=== PATIENT | male | born 1990 | race Caucasian/White ===

== ENCOUNTER 2021-10-21 09:20 | Outpatient (CLI) | payer OTHER | END 2021-10-21 09:21 | disposition critical access hospital (66) | LOC: EMS 09:20 | DX: S61.412A Laceration without foreign body of left hand, initial encounter (principal); W31.2XXA Contact with powered woodworking and forming machines, initial encounter; Y93.H3 Activity, building and construction; Y92.008 Other place in unspecified non-institutional (private) residence as the place of occurrence of the external cause; Y99.0 Civilian activity done for income or pay | CPT/HCPCS: A0425; A0427 ==

== ENCOUNTER 2021-10-21 09:40 | Emergency (ER) | payer OTHER ==
--- NOTE | 2021-10-21 09:45 | ED Physician Documentation ---
PD HPI UPPER EXT INJURY - Stated complaint Stated Complaint: HAND INJURY - History obtained from History obtained from: Patient, EMS - History of Present Illness Location: Left, Hand (palm and thenar area to base of thumb.) Type of injury: Laceration (He states he was using a circular power saw that kicked on the wood he was cutting and deviated into his left palm. Significant laceration in the palm to the base of the thumb with obvious open fracture and some bleeding.) Where injury occurred: Work Timing - onset: How many minutes ago (30), Today Timing - details: Abrupt onset, Still present Worsened by: Moving, Palpating Associated symptoms: Weakness (for thumb and index finger movement.), Numbness (for thumb and index/middle fingers. Has sensation normal just in little finger and side of ring.) Contributing factors: No: Prior ortho surgery Similar symptoms before: Has not had sx before Recently seen: Not recently seen Review of Systems Constitutional: denies: Fever Nose: denies: Rhinorrhea / runny nose, Congestion Throat: denies: Sore throat Respiratory: denies: Cough GI: denies: Nausea, Vomiting Skin: reports: Laceration (s) Neurologic: reports: Focal weakness, Numbness. denies: Altered mental status, LOC PD PAST MEDICAL HISTORY - Past Medical History Cardiovascular: None Respiratory: Asthma Neuro: None Endocrine/Autoimmune: None - Past Surgical History Past Surgical History: No - Present Medications Home Medications: Ambulatory Orders Medication Instructions Recorded Confirmed Ibuprofen 1 tab PO TID PRN 10/25/15 10/21/21 - Allergies Allergies/Adverse Reactions: Allergies Allergy/AdvReac Type Severity Reaction Status Date / Time No Known Drug Allergies Allergy Verified 10/21/21 09:57 - Social History Does the pt smoke?: Yes Smoking Status: Current every day smoker Does the pt drink ETOH?: Yes Does the pt have substance abuse?: Yes - Immunizations Immunizations are current?: Yes - POLST Patient has POLST: No PD ED PE NORMAL - Vitals Vital signs reviewed: Yes - General General: Alert and oriented X 3, Well developed/nourished, Other (left hand bandaged. He appears in pain from hand injury. ) - HEENT HEENT: Atraumatic - Cardiac Cardiac: RRR, Other (good cap refill in all finger tips. ) - Respiratory Respiratory: No respiratory distress, Clear bilaterally - Derm Derm: Normal color, Warm and dry - Extremities Extremities: Other (The left hand shows a large laceration starting near the hypothenar area partial-thickness and extending deeper in a horizontal direction to the base of the thumb. Obvious disruption of the thenar muscles and the base of the thumb at the distal first metacarpal. No obvious FB. mild bleeding.) - Neuro Neuro: Alert and oriented X 3, Normal speech, Other (Diminished sensation in the middle and ring finger in the side of the index finger with poor discrimination of sharp dull. No sensation in the thumb. Mild flexion movement of the thumb. No abduction or abduction. The other fingers show flexion at the DIPs but poor flexion at the PIPs and MCPs. ) Results - Vitals Vitals: Vital Signs - 24 hr 10/21/21 10/21/21 10/21/21 09:57 11:03 11:57 Temperature 37 C Heart Rate 51 L 68 55 L Respiratory 12 12 20 Rate Blood Pressure 138/100 H 153/110 H 132/94 H O2 Saturation 94 93 93 10/21/21 12:33 Temperature 37.1 C Heart Rate 70 Respiratory 16 Rate Blood Pressure 143/82 H O2 Saturation 93 Oxygen O2 Source Room air - Labs Labs: Laboratory Tests 10/21/21 10/21/21 10/21/21 10:08 10:08 10:20 WBC 7.6 RBC 4.62 L Hgb 14.7 Hct 43.1 MCV 93.3 MCH 31.8 H MCHC 34.1 RDW 11.8 L Plt Count 381 MPV 10.1 Neut # (Auto) 5.3 Lymph # (Auto) 1.5 [place] # (Auto) 0.6 Eos # (Auto) 0.2 Baso # (Auto) 0.1 Absolute Nucleated RBC 0.00 Nucleated RBC % 0.0 Sodium 138 Potassium 4.3 Chloride 102 Carbon Dioxide 26 Anion Gap 10.0 BUN 15 Creatinine 1.0 Estimated GFR (MDRD) 87 L Glucose 119 H Calcium 9.1 Total Bilirubin 0.5 AST 15 ALT 15 Alkaline Phosphatase 49 Total Protein 7.1 Albumin 4.3 Globulin 2.8 Albumin/Globulin Ratio 1.5 Lipase 37 SARS-CoV-2 (PCR) NOT DETECTED - Rads (name of study) left hand Radiology: Prelim report reviewed (fracture and soft tissue injury distal first MC. ), See rad report PD MEDICAL DECISION MAKING - ED course Complexity details: considered differential (Deep laceration with fracture base of the thumb and involving possibly flexor tendons of other fingers. [facility] [place] was contacted and auto accepted to the trauma center.), d/w patient ED course: The patient was given IV fluids as well as pain medication. He was given a gram of Ancef IV. He states his last tetanus was 6 years ago so was up-to-date. It is first bandaging applied in the field was removed and wound examined. Minimal bleeding. No obvious foreign body. There was some gentle cleansing of the area and then rebandaged. Repeat pain medication doses were given at interval as needed. [facility] [place] accepted the patient in transfer to their ER. [facility] declined transfer for not wanting rig that far off the [place] [facility] was called and arrived about an hour. The patient will be transferred by ground ambulance for more definitive care. His level of injury did not warrant air transport as he did have circulation to the thumb and fingers and these were reassessed at interval. Departure - Departure Disposition: 02 Transfer Acute Care Hosp Clinical Impression: Hand laceration involving tendon, Metacarpal bone fracture Condition: Stable
[2021-10-21] MEDS ORDERED: HYDROmorphone 1 MG/ML CARPUJECT IVP STA ×3 (09:57→12:49)
[2021-10-21] MEDS ORDERED: SODIUM CHLORIDE 0.9% 1,000 ML IV STA ×2 (09:57→11:22)
[2021-10-21] MEDS ORDERED: ceFAZolin 1 GM in SODIUM CHLORIDE 0.9% MINIBAG 100 ML IV STA (09:57)
[2021-10-21] MEDS ORDERED: KETOROLAC 15 MG/ML VIAL IVP STA (09:57)
[2021-10-21 10:12] LABS: BASOPHILS # (AUTO) 0.1 10^3/uL (0.0-0.1); BASOPHILS % (AUTO) 0.9 %; EOSINOPHILS # (AUTO) 0.2 10^3/uL (0.0-0.7); EOSINOPHILS % (AUTO) 2.5 %; HCT - HEMATOCRIT 43.1 % (42.0-52.0); HGB - HEMOGLOBIN 14.7 g/dL (14.0-18.0); LYMPHOCYTES # (AUTO) 1.5 10^3/uL (1.5-3.5); LYMPHOCYTES % (AUTO) 19.4 %; MEAN CORPUSCULAR HEMOGLOBIN 31.8 pg (27.0-31.0); MEAN CORPUSCULAR HGB CONC 34.1 g/dL (32.0-36.0); MEAN CORPUSCULAR VOLUME 93.3 fL (80.0-94.0); MEAN PLATELET VOLUME 10.1 fL (7.4-11.4); MONOCYTES # (AUTO) 0.6 10^3/uL (0.0-1.0); NEUTROPHILS # (AUTO) 5.3 10^3/uL (1.5-6.6); NEUTROPHILS % (AUTO) 68.9 %; PLT - PLATELET COUNT 381 10^3/uL (130-450); RED BLOOD COUNT 4.62 10^6/uL (4.70-6.10); RED CELL DISTRIBUTION WIDTH 11.8 % (12.0-15.0); WHITE BLOOD COUNT 7.6 x10^3/uL (4.8-10.8)
[2021-10-21 10:24] LABS: ALBUMIN 4.3 g/dL (3.2-5.5); ALBUMIN/GLOBULIN RATIO 1.5 (1.0-2.2); BILIRUBIN,TOTAL 0.5 mg/dL (0.2-1.0); CALCIUM 9.1 mg/dL (8.5-10.3); POTASSIUM 4.3 mmol/L (3.5-5.0); TOTAL PROTEIN 7.1 g/dL (6.7-8.2)
--- NOTE | 2021-10-21 11:09 | XRAY Report ---
PROCEDURE: Hand 3 View LT INDICATIONS: hand injury, circular saw TECHNIQUE: 3 views of the hand(s) acquired. COMPARISON: None FINDINGS: Bones: There is an oblique fracture through the distal left first metacarpal shaft with ulnar displac ement and overriding of the distal fracture fragment. There is overlying soft tissue defect. No radio paque soft tissue foreign body seen No suspicious bony lesions. Soft tissues: No suspicious soft tissue calcifications. IMPRESSION: Oblique fracture involving the distal left first metacarpal shaft with overriding and ulnar displacem ent of the distal fracture fragment. Overlying soft tissue defect. No radiopaque soft tissue foreign bodies visualized. Reviewed by: Naman Cat MD on 10/21/2021 11:07 AM PDT Approved by: Naman Cat MD on 10/21/2021 11:07 AM PDT Station ID: [id number]
[2021-10-21 12:37] VITALS: BP 143/82
== END 2021-10-21 13:55 | disposition short-term general hospital (02) ==
LOC: EDUNIT# → ED 09:40
DX: S62.202A Unspecified fracture of first metacarpal bone, left hand, initial encounter for closed fracture (principal); W27.0XXA Contact with workbench tool, initial encounter; F17.200 Nicotine dependence, unspecified, uncomplicated
CPT/HCPCS: 1040M; 36415; 73130; 80053; 83690; 85025; 87635; J1170; 96365; 96375; 96376; 99284

== ENCOUNTER 2023-07-31 16:38 | Observation (INO) | payer MEDICAID, OTHER ==
[2023-07-31 17:08] LABS: BASOPHILS % (AUTO) 1.5 %; EOSINOPHILS % (AUTO) 13.9 %; HCT - HEMATOCRIT 47.6 % (42.0-52.0); HGB - HEMOGLOBIN 16.2 g/dL (14.0-18.0); LYMPHOCYTES % (AUTO) 26.1 %; MEAN CORPUSCULAR HEMOGLOBIN 30.4 pg (27.0-31.0); MEAN CORPUSCULAR VOLUME 89.3 fL (80.0-94.0); MEAN PLATELET VOLUME 10.7 fL (7.4-11.4); MONOCYTES % (AUTO) 7.6 %; NEUTROPHILS % (AUTO) 50.6 %; PLT - PLATELET COUNT 328 10^3/uL (130-450); RED BLOOD COUNT 5.33 10^6/uL (4.70-6.10); RED CELL DISTRIBUTION WIDTH 12.3 % (12.0-15.0); WHITE BLOOD COUNT 10.9 x10^3/uL (4.8-10.8)
--- NOTE | 2023-07-31 17:08 | ED Physician Documentation ---
PD HPI ABD PAIN - Stated complaint Stated Complaint: ABD PX - Chief complaint Chief Complaint: Abd Pain - History obtained from History obtained from: Patient - Additional information Additional information: Otherwise healthy 32-year-old gentleman had some right back pain that he felt was work-related for the last week or so. Starting last night though he developed right lower quadrant pain radiating to the right testicle that is quite severe. He had mild nausea with it. PD PAST MEDICAL HISTORY - Past Medical History Cardiovascular: None Respiratory: Asthma Neuro: None Endocrine/Autoimmune: None GI: Other : Renal insuffiency HEENT: None Psych: None Musculoskeletal: Chronic back pain Derm: None - Past Surgical History Past Surgical History: No Ortho: Other - Present Medications Home Medications: Ambulatory Orders Medication Instructions Recorded Confirmed Gabapentin [Neurontin] 300 mg PO DAILY 07/31/23 07/31/23 Montelukast Sodium 10 mg PO DAILY 07/31/23 07/31/23 - Allergies Allergies/Adverse Reactions: Allergies Allergy/AdvReac Type Severity Reaction Status Date / Time No Known Drug Allergies Allergy Verified 07/31/23 16:53 - Social History Does the pt smoke?: Yes Smoking Status: Current every day smoker Does the pt drink ETOH?: Yes Does the pt have substance abuse?: Yes Substance Use and Type: Marijuana - Immunizations Immunizations are current?: Yes Immunizations: Other immun not current - POLST Patient has POLST: No PD ED PE NORMAL - Vitals Vital signs reviewed: Yes - General General: Alert and oriented X 3, No acute distress - Cardiac Cardiac: RRR, No murmur - Respiratory Respiratory: No respiratory distress, Clear bilaterally - Abdomen Abdomen: Normal bowel sounds, Soft, Other (Significant tenderness in the right lower quadrant without surgical signs. Normal testicular and exam without hernia. No testicular tenderness.) - Neuro Neuro: Alert and oriented X 3 Results - Vitals Vitals: Vital Signs - 24 hr 07/31/23 07/31/23 07/31/23 16:47 16:53 17:56 Temperature 37.2 C 37.0 C 37.0 C Heart Rate 79 86 86 Respiratory 16 16 16 Rate Blood Pressure 137/88 H 136/80 H 136/80 H O2 Saturation 97 98 98 Oxygen O2 Source Room air - Labs Labs: Laboratory Tests 07/31/23 07/31/23 07/31/23 16:57 16:57 17:52 WBC 10.9 H RBC 5.33 Hgb 16.2 Hct 47.6 MCV 89.3 MCH 30.4 MCHC 34.0 RDW 12.3 Plt Count 328 MPV 10.7 Neut # (Auto) Not Reportable Lymph # (Auto) Not Reportable [place] # (Auto) Not Reportable Eos # (Auto) Not Reportable Baso # (Auto) Not Reportable Absolute Nucleated RBC Not Reportable Total Counted 100 Band Neuts % (Manual) 0 Abnorm Lymph % (Manual) 2 Metamyelocytes % 1 H Nucleated RBC % Not Reportable Neutrophils # (Manual) 4.7 Lymphocytes # (Manual) 4.0 H Monocytes # (Manual) 0.7 Eosinophils # (Manual) 1.2 H Basophils # (Manual) 0.2 H Differential Comment MANUAL DIFFERENTIAL Platelet Estimate NORMAL (130-450,000) Platelet Morphology NORMAL APPEARANCE RBC Morph Micro Appear NORMAL APPEARANCE Sodium 137 Potassium 3.8 Chloride 102 Carbon Dioxide 29 Anion Gap 6.0 BUN 12 Creatinine 1.0 Estimated GFR (MDRD) 87 L Glucose 83 Calcium 10.5 H Total Bilirubin 0.6 AST 17 ALT 25 Alkaline Phosphatase 60 Total Protein 7.8 Albumin 4.9 Globulin 2.9 Albumin/Globulin Ratio 1.7 Urine Color YELLOW Urine Clarity CLEAR Urine pH 7.5 Ur Specific [place] 1.010 Urine Protein NEGATIVE Urine Glucose (UA) NEGATIVE Urine Ketones NEGATIVE Urine Occult Blood NEGATIVE Urine Nitrite NEGATIVE Urine Bilirubin NEGATIVE Urine Urobilinogen 0.2 (NORMAL) Ur Leukocyte Esterase NEGATIVE Ur Microscopic Review NOT INDICATED Urine Culture Comments NOT INDICATED PD Medical Decision Making - ED course ED course: 32-year-old gentleman presents with signs and symptoms most consistent with appendicitis. Workup in the emergency department demonstrates a mild leukocytosis and a CT showing a slightly dilated appendix without other inflammatory signs but he also has some mucosal hyperemia of the colon. Case was discussed by phone with our surgeon, Dr. Blanco at approximately 6:25 PM. Given the concern for potential IBD her plan at this point is to start some Zosyn and probably observe him with the decision for surgery in the morning. Departure - Departure Disposition: ED Place in Observation Clinical Impression: Abdominal pain Condition: Stable Forms: PCP List
[2023-07-31 17:15] LABS: BAND NEUTROPHILS % (MANUAL) 0 %
[2023-07-31 17:19] LABS: ALBUMIN 4.9 g/dL (3.2-5.5); ALBUMIN/GLOBULIN RATIO 1.7 (1.0-2.2); BILIRUBIN,TOTAL 0.6 mg/dL (0.2-1.0); CALCIUM 10.5 mg/dL (8.5-10.3); POTASSIUM 3.8 mmol/L (3.5-4.5); TOTAL PROTEIN 7.8 g/dL (6.4-8.9)
[2023-07-31] MEDS ORDERED: iohexoL-300 100 ML VIAL ONE (17:24)
[2023-07-31] MEDS: KETOROLAC 15 MG/ML VIAL IVP STA (17:26)
[2023-07-31 17:34] LABS: ABNORMAL LYMPHS % (MANUAL) 2 %; BASOPHILS # (MANUAL) 0.2 10^3/uL (0-0.1); BASOPHILS % (MANUAL) 2 %; EOSINOPHILS # (MANUAL) 1.2 10^3/uL (0-0.7); LYMPHOCYTES % (MANUAL) 35 %; METAMYELOCYTES % (MANUAL) 1 %; MONOCYTES # (MANUAL) 0.7 10^3/uL (0.0-1.0); NEUTROPHILS # (MANUAL) 4.7 10^3/uL (1.5-6.6)
[2023-07-31 17:40] LABS: PLATELET ESTIMATE, MANUAL NORMAL (130-450,000) (NORMAL); PLATELET MORPHOLOGY NORMAL APPEARANCE (NORMAL); RBC MORPHOLOGY (MULTIPLE) NORMAL APPEARANCE (NORMAL)
[2023-07-31 17:41] LABS: DIFFERENTIAL COMMENT MANUAL DIFFERENTIAL
[2023-07-31 18:09] LABS: BILIRUBIN,URINE NEGATIVE (NEGATIVE); GLUCOSE, URINE (UA) NEGATIVE (NEGATIVE); KETONES,URINE (UA) NEGATIVE (NEGATIVE); LEUKOCYTE ESTERASE, URINE NEGATIVE (NEGATIVE); NITRITE,URINE NEGATIVE (NEGATIVE); OCCULT BLOOD,URINE NEGATIVE (NEGATIVE); PH,URINE 7.5 PH (5.0-7.5); PROTEIN,URINE NEGATIVE (NEGATIVE); UROBILINOGEN,URINE 0.2 (NORMAL) E.U./dL (NORMAL)
[2023-07-31 18:16] LABS: CLARITY,URINE CLEAR (CLEAR)
--- NOTE | 2023-07-31 18:27 | CT Report ---
PROCEDURE: Abdomen/Pelvis W INDICATIONS: RLQ pain, IV only CONTRAST: Omnipaque 300 100ml TECHNIQUE: After the administration of intravenous contrast, a CT scan of the abdomen and pelvis was performed. Images were recorded and evaluated at appropriate window settings. Reformats: coronal and sagittal. F or radiation dose reduction, the following was used: automated exposure control, adjustment of mA and /or kV according to patient size. COMPARISON: None. FINDINGS: Image quality: Diagnostic. Lower chest: Scattered patchy areas of groundglass and calcified airspace opacity. No pleural effusio n. Liver: No solid mass. Gallbladder and biliary tree: Normal gallbladder. Nondilated biliary tree. Spleen: No splenomegaly. Pancreas: No pancreatic ductal dilation. Adrenals: No adrenal nodule. Kidneys and ureters: Symmetric renal enhancement. Mild right renal atrophy. No hydronephrosis or hydr oureter. Stomach, bowel and peritoneum: The appendix is slightly prominent measuring up to 9 mm in diameter an d hyperemic. No definite periappendiceal fat stranding. There is diffuse colon wall fat infiltration and decompression. Mild mucosal hyperemia is seen. Stomach and small bowel loops are unremarkable wit hout obstruction. Rectal mucosa appears mildly hyperemic. Lymph nodes: No central or retroperitoneal adenopathy. Vessels: No infrarenal aortic aneurysm. PELVIS Reproductive organs: Unremarkable. Bladder: No abnormal wall thickening, accounting for underdistention. Pelvic lymph nodes: No pelvic adenopathy by size criteria. Bones: No aggressive osseous abnormality. Other: No significant ventral or inguinal hernia. IMPRESSION: Prominent appendix without discrete periappendiceal inflammation. Findings could be seen in early martine endicitis. Clinical follow-up recommended. Diffuse colonic mucosal hyperemia and fatty infiltration of the colon wall. This can be seen in infla mmatory bowel disease, less likely infectious colitis. Clinical correlation recommended. No evidence of bowel obstruction, abscess formation, or perforation. Reviewed by: Paulina Salazar MD on 07/31/2023 6:25 PM PDT Approved by: Paulina Salazar MD on 07/31/2023 6:25 PM PDT Station ID: [id number]
[2023-07-31] MEDS: PIPERACILLIN/TAZOBACTAM 3.375 GM in SODIUM CHLORIDE 0.9% MINIBAG 100 ML IV STA (18:38)
[2023-07-31] MEDS ORDERED: PIPERACILLIN/TAZOBACTAM 3.375 GM in SODIUM CHLORIDE 0.9% MINIBAG 100 ML IV SCH (19:00)
[2023-07-31] MEDS ORDERED: HYDROmorphone 0.5 MG/0.5 ML SYRINGE IVP PRN (19:26)
[2023-07-31] MEDS ORDERED: ONDANSETRON 4 MG/2 ML VIAL IVP PRN (19:26)
[2023-07-31] MEDS: iohexoL-300 100 ML VIAL IVP ONE (19:32)
[2023-07-31] MEDS ORDERED: KETOROLAC 15 MG/ML VIAL IVP PRN (19:35)
--- NOTE | 2023-07-31 19:41 | SURGERY HX AND PHYSICAL(T) ---
Surgical History & Physical - Chief Complaint/HPI Chief Complaint: abdominal and back pain History of Present Illness: Patient reports chronic back pain which has been worse for the last couple of days and acute onset right lower quadrant pain since last night. His pain is sharp and constant in nature. It is made worse with activity and palpation. He denies f/c, c/d, blood in his stool, recent weight loss, and has had a normal appetite throughout his illness. He had a similar episode of pain about ten years ago and was diagnosed with "colitis" which improved with medication (though he's not sure what he was given) and he did not require any follow up. No family history of colon cancer. +FH of crohn's in his sister. - PMH/PSH/Social Hx Does the pt have a hx of MRSA?: No Neurological History: None Eyes, Ears, Nose, Throat: None Cardiovascular: None Respiratory: Asthma Skin: None Endocrine/Autoimmune: None Gastrointestinal: Other Urinary: Renal insuffiency Musculoskeletal: Chronic back pain Blood Disorders: None Psychiatric: None Orthopedic: Other (multiple left hand surgeries for near amputation about 2 years ago) Smoking Status: Former smoker (quit 2 years ago) Does the pt drink ETOH?: No Number: 4 Does the pt have substance abuse?: Yes Substance Use and Type: Marijuana (daily use) - Family Hx Family Hx: Other (Paternal grandfather had CAD, CVA. Mother has DM. Sister with Crohn's) - Home Meds and Allergies Home Medications: Gabapentin [Neurontin] 300 mg PO DAILY 07/31/23 Montelukast Sodium 10 mg PO DAILY 07/31/23 Allergies/Adverse Reactions: Allergies Allergy/AdvReac Type Severity Reaction Status Date / Time No Known Drug Allergies Allergy Verified 07/31/23 16:53 - Review of Systems Constitutional: Other (A complete 10 point review of symptoms is otherwise negative except for that noted in HPI and PMH.) - Vital Signs Heart Rate: 86 Blood Pressure: 136/80 Temperature: 37.0 C Respiratory Rate: 16 O2 Saturation: 98 Weight (kg): 76.376 kg Height: 1.75 m - Physical Exam Comments/Other: GEN: No acute distress, appears stated age, alert and oriented HEENT: NCAT, MMM, EOMI NEURO: CN II-XII grossly intact, no obvious focal deficits CV: RRR PULM: Nonlabored, on room air ABD: soft, with moderate tenderness to deep palpation in the right lower quadrant, negative Rovsing sign, negative heeltap, no significant rebound or guarding, abdomen otherwise nontender CIRCULATORY: no clubbing, cyanosis, or edema SKIN: no lesions appreciated LYMPH: no obvious lymphadenopathy MSK: 4/4 strength in all extremities except for left upper extremity which shows scarring consistent with previous surgery and demonstrates 3 out of 4 strength PSYCH: Affect is appropriate - Patient Review Patient Review: Problems were reviewed with the patient during this visit. Medications were reviewed with the patient during this visit. Allergies were reviewed this patient during this visit. Pertinent Tests Reviewed: All pertitent test for this patient were reviewed. - Assessment & Plan Assessment and Plan: This is a 32-year-old male with: 1. Acute colitis with appendicitis The patient has pancolitis and mild appendicitis measuring 0.9 cm in greatest diameter. There is no significant fat stranding throughout the abdomen. There is no free air. There is no significant free fluid. I personally reviewed the images and report from the patient's CT scan done today. The patient has been tolerating a regular diet although he has not had much to eat today. He reports a regular bowel movement without any blood in his stool yesterday. He has never noted any blood in his stool previously. He has not had any unexplained weight loss. His CT scan is more concerning for inflammatory bowel disease versus infectious colitis than appendicitis. In the setting of inflammatory bowel disease, appendectomy is contraindicated. I explained these findings with the patient and his mother at bedside. At this time, I will start the patient on a clear liquid diet and IV antibiotics. His if his symptoms do not significantly improve in the next 24 hours, I will start him on steroids as well to empirically treat for inflammatory bowel disease. Once his symptoms have improved, I would recommend colonoscopy to definitively rule in or out inflammatory bowel disease. The patient is and his mother are agreeable to this plan of care. When the patient's symptoms improved, I will transition him to oral medications and a regular diet. 2. Asthma -I will continue the patient's home medications. The patient will be admitted to the floor under observation status.
[2023-07-31 20:06] LABS: BUN - BLOOD UREA NITROGEN 13 mg/dL (6-20); CALCIUM 10.3 mg/dL (8.5-10.3); CARBON DIOXIDE - CO2 26 mmol/L (21-32); CHLORIDE 102 mmol/L (101-111); CRP - C-REACTIVE PROTEIN < 0.5 mg/dL (<0.5); GFR - MDRD 87 (>89); GLUCOSE 89 mg/dL (74-104); SODIUM 136 mmol/L (135-145)
[2023-07-31] MEDS: SODIUM CHLORIDE 0.9% 1,000 ML IV SCH (20:12)
[2023-07-31] MEDS: ACETAMINOPHEN 500 MG TABLET PO PRN (20:18)
[2023-07-31 20:19] LABS: HCT - HEMATOCRIT 46.4 % (42.0-52.0); HGB - HEMOGLOBIN 15.8 g/dL (14.0-18.0); MEAN CORPUSCULAR HEMOGLOBIN 30.4 pg (27.0-31.0); MEAN CORPUSCULAR HGB CONC 34.1 g/dL (32.0-36.0); MEAN CORPUSCULAR VOLUME 89.2 fL (80.0-94.0); RED BLOOD COUNT 5.2 10^6/uL (4.70-6.10); RED CELL DISTRIBUTION WIDTH 12.3 % (12.0-15.0); WHITE BLOOD COUNT 10.3 x10^3/uL (4.8-10.8)
[2023-07-31] MEDS ORDERED: ALBUTEROL NEB 2.5 MG/3 ML INH PRN (20:26)
[2023-07-31] MEDS: PIPERACILLIN/TAZOBACTAM 3.375 GM in SODIUM CHLORIDE 0.9% MINIBAG 100 ML IV SCH (22:10)
[2023-08-01 05:44] LABS: HCT - HEMATOCRIT 47.8 % (42.0-52.0); HGB - HEMOGLOBIN 16.2 g/dL (14.0-18.0); MEAN CORPUSCULAR HEMOGLOBIN 30.5 pg (27.0-31.0); MEAN CORPUSCULAR HGB CONC 33.9 g/dL (32.0-36.0); MEAN PLATELET VOLUME 10.9 fL (7.4-11.4); RED BLOOD COUNT 5.31 10^6/uL (4.70-6.10); RED CELL DISTRIBUTION WIDTH 12.3 % (12.0-15.0); WHITE BLOOD COUNT 9.9 x10^3/uL (4.8-10.8)
[2023-08-01 05:48] LABS: BUN - BLOOD UREA NITROGEN 13 mg/dL (6-20); CALCIUM 9.9 mg/dL (8.5-10.3); CARBON DIOXIDE - CO2 24 mmol/L (21-32); CHLORIDE 104 mmol/L (101-111); CRP - C-REACTIVE PROTEIN < 0.5 mg/dL (<0.5); GFR - MDRD 87 (>89); GLUCOSE 103 mg/dL (74-104); POTASSIUM 3.9 mmol/L (3.5-4.5); SODIUM 137 mmol/L (135-145)
[2023-08-01] MEDS: AMOX/CLAV 875 MG/125 MG TABLET PO SCH (09:27)
[2023-08-01 09:49] VITALS: O2SAT 93
--- NOTE | 2023-08-01 10:18 | PROVIDER PROGRESS NOTE ---
Subjective - General Admit Date: 07/31/23 - Other Other Information/Narrative: Pain markedly improved this morning. No f/c. No n/v. Hungry this morning. Objective - Patient Data Vital Signs: Vital Signs x48h Temp Pulse Resp BP BP Pulse Ox 08/01/23 09:00 36.8 C 67 19 146/95 H 93 08/01/23 04:25 36.8 C 73 16 134/83 H 96 Weight: Weight 07/30/23 07/31/23 08/01/23 23:59 23:59 23:59 Weight (kg) 73.5 kg Intake & Output: Intake and Output Totals x24h 07/30/23 07/31/23 08/01/23 23:59 23:59 23:59 Intake Total 100 1060.000 Balance 100 1060.000 - Lab Results Lab Results: 08/01/23 05:20 08/01/23 05:20 Other Lab Results: Lab Results x24hrs 08/01/23 08/01/23 07/31/23 Range/Units 05:20 05:20 19:48 WBC 9.9 (4.8-10.8) x10^3/uL RBC 5.31 (4.70-6.10) 10^6/uL Hgb 16.2 (14.0-18.0) g/dL Hct 47.8 (42.0-52.0) % MCV 90.0 (80.0-94.0) fL MCH 30.5 (27.0-31.0) pg MCHC 33.9 (32.0-36.0) g/dL RDW 12.3 (12.0-15.0) % Plt Count 321 (130-450) 10^3/uL MPV 10.9 (7.4-11.4) fL Neut # (Auto) Lymph # (Auto) Caroline # (Auto) Eos # (Auto) Baso # (Auto) Absolute Nucleated RBC Total Counted Band Neuts % (Manual) (0 - 10) % Abnorm Lymph % (Manual) % Metamyelocytes % ( - 0) % Nucleated RBC % Neutrophils # (Manual) (1.5-6.6) 10^3/uL Lymphocytes # (Manual) (1.5-3.5) 10^3/uL Monocytes # (Manual) (0.0-1.0) 10^3/uL Eosinophils # (Manual) (0-0.7) 10^3/uL Basophils # (Manual) (0-0.1) 10^3/uL Differential Comment Platelet Estimate (NORMAL) Platelet Morphology (NORMAL) RBC Morph Micro Appear (NORMAL) Sodium 137 136 (135-145) mmol/L Potassium 3.9 4.0 (3.5-4.5) mmol/L Chloride 104 102 (101-111) mmol/L Carbon Dioxide 24 26 (21-32) mmol/L Anion Gap 9.0 8.0 (6-13) BUN 13 13 (6-20) mg/dL Creatinine 1.0 1.0 (0.6-1.3) mg/dL Estimated GFR (MDRD) 87 L 87 L (>89) Glucose 103 89 (74-104) mg/dL Calcium 9.9 10.3 (8.5-10.3) mg/dL Total Bilirubin (0.2-1.0) mg/dL AST (10-42) IU/L ALT (10-60) IU/L Alkaline Phosphatase (42-121) IU/L C-Reactive Protein < 0.5 < 0.5 (<0.5) mg/dL Total Protein (6.4-8.9) g/dL Albumin (3.2-5.5) g/dL Globulin (2.1-4.2) g/dL Albumin/Globulin Ratio (1.0-2.2) Urine Color Urine Clarity (CLEAR) Urine pH (5.0-7.5) PH Ur Specific [place] (1.002-1.030) Urine Protein (NEGATIVE) mg/dL Urine Glucose (UA) (NEGATIVE) mg/dL Urine Ketones (NEGATIVE) mg/dL Urine Occult Blood (NEGATIVE) Urine Nitrite (NEGATIVE) Urine Bilirubin (NEGATIVE) Urine Urobilinogen (NORMAL) E.U./dL Ur Leukocyte Esterase (NEGATIVE) Ur Microscopic Review Urine Culture Comments 07/31/23 07/31/23 07/31/23 Range/Units 19:48 17:52 16:57 WBC 10.3 (4.8-10.8) x10^3/uL RBC 5.20 (4.70-6.10) 10^6/uL Hgb 15.8 (14.0-18.0) g/dL Hct 46.4 (42.0-52.0) % MCV 89.2 (80.0-94.0) fL MCH 30.4 (27.0-31.0) pg MCHC 34.1 (32.0-36.0) g/dL RDW 12.3 (12.0-15.0) % Plt Count 319 (130-450) 10^3/uL MPV 11.0 (7.4-11.4) fL Neut # (Auto) Lymph # (Auto) Caroline # (Auto) Eos # (Auto) Baso # (Auto) Absolute Nucleated RBC Total Counted Band Neuts % (Manual) (0 - 10) % Abnorm Lymph % (Manual) % Metamyelocytes % ( - 0) % Nucleated RBC % Neutrophils # (Manual) (1.5-6.6) 10^3/uL Lymphocytes # (Manual) (1.5-3.5) 10^3/uL Monocytes # (Manual) (0.0-1.0) 10^3/uL Eosinophils # (Manual) (0-0.7) 10^3/uL Basophils # (Manual) (0-0.1) 10^3/uL Differential Comment Platelet Estimate (NORMAL) Platelet Morphology (NORMAL) RBC Morph Micro Appear (NORMAL) Sodium 137 (135-145) mmol/L Potassium 3.8 (3.5-4.5) mmol/L Chloride 102 (101-111) mmol/L Carbon Dioxide 29 (21-32) mmol/L Anion Gap 6.0 (6-13) BUN 12 (6-20) mg/dL Creatinine 1.0 (0.6-1.3) mg/dL Estimated GFR (MDRD) 87 L (>89) Glucose 83 (74-104) mg/dL Calcium 10.5 H (8.5-10.3) mg/dL Total Bilirubin 0.6 (0.2-1.0) mg/dL AST 17 (10-42) IU/L ALT 25 (10-60) IU/L Alkaline Phosphatase 60 (42-121) IU/L C-Reactive Protein (<0.5) mg/dL Total Protein 7.8 (6.4-8.9) g/dL Albumin 4.9 (3.2-5.5) g/dL Globulin 2.9 (2.1-4.2) g/dL Albumin/Globulin Ratio 1.7 (1.0-2.2) Urine Color YELLOW Urine Clarity CLEAR (CLEAR) Urine pH 7.5 (5.0-7.5) PH Ur Specific [place] 1.010 (1.002-1.030) Urine Protein NEGATIVE (NEGATIVE) mg/dL Urine Glucose (UA) NEGATIVE (NEGATIVE) mg/dL Urine Ketones NEGATIVE (NEGATIVE) mg/dL Urine Occult Blood NEGATIVE (NEGATIVE) Urine Nitrite NEGATIVE (NEGATIVE) Urine Bilirubin NEGATIVE (NEGATIVE) Urine Urobilinogen 0.2 (NORMAL) (NORMAL) E.U./dL Ur Leukocyte Esterase NEGATIVE (NEGATIVE) Ur Microscopic Review NOT INDICATED Urine Culture Comments NOT INDICATED 07/31/23 Range/Units 16:57 WBC 10.9 H (4.8-10.8) x10^3/uL RBC 5.33 (4.70-6.10) 10^6/uL Hgb 16.2 (14.0-18.0) g/dL Hct 47.6 (42.0-52.0) % MCV 89.3 (80.0-94.0) fL MCH 30.4 (27.0-31.0) pg MCHC 34.0 (32.0-36.0) g/dL RDW 12.3 (12.0-15.0) % Plt Count 328 (130-450) 10^3/uL MPV 10.7 (7.4-11.4) fL Neut # (Auto) Not Reportable Lymph # (Auto) Not Reportable Caroline # (Auto) Not Reportable Eos # (Auto) Not Reportable Baso # (Auto) Not Reportable Absolute Nucleated RBC Not Reportable Total Counted 100 Band Neuts % (Manual) 0 (0 - 10) % Abnorm Lymph % (Manual) 2 % Metamyelocytes % 1 H ( - 0) % Nucleated RBC % Not Reportable Neutrophils # (Manual) 4.7 (1.5-6.6) 10^3/uL Lymphocytes # (Manual) 4.0 H (1.5-3.5) 10^3/uL Monocytes # (Manual) 0.7 (0.0-1.0) 10^3/uL Eosinophils # (Manual) 1.2 H (0-0.7) 10^3/uL Basophils # (Manual) 0.2 H (0-0.1) 10^3/uL Differential Comment MANUAL DIFFERENTIAL Platelet Estimate NORMAL (130-450,000) (NORMAL) Platelet Morphology NORMAL APPEARANCE (NORMAL) RBC Morph Micro Appear NORMAL APPEARANCE (NORMAL) Sodium (135-145) mmol/L Potassium (3.5-4.5) mmol/L Chloride (101-111) mmol/L Carbon Dioxide (21-32) mmol/L Anion Gap (6-13) BUN (6-20) mg/dL Creatinine (0.6-1.3) mg/dL Estimated GFR (MDRD) (>89) Glucose (74-104) mg/dL Calcium (8.5-10.3) mg/dL Total Bilirubin (0.2-1.0) mg/dL AST (10-42) IU/L ALT (10-60) IU/L Alkaline Phosphatase (42-121) IU/L C-Reactive Protein (<0.5) mg/dL Total Protein (6.4-8.9) g/dL Albumin (3.2-5.5) g/dL Globulin (2.1-4.2) g/dL Albumin/Globulin Ratio (1.0-2.2) Urine Color Urine Clarity (CLEAR) Urine pH (5.0-7.5) PH Ur Specific [place] (1.002-1.030) Urine Protein (NEGATIVE) mg/dL Urine Glucose (UA) (NEGATIVE) mg/dL Urine Ketones (NEGATIVE) mg/dL Urine Occult Blood (NEGATIVE) Urine Nitrite (NEGATIVE) Urine Bilirubin (NEGATIVE) Urine Urobilinogen (NORMAL) E.U./dL Ur Leukocyte Esterase (NEGATIVE) Ur Microscopic Review Urine Culture Comments - Current Medications Current Medications: Current Medications Generic Name Dose Route Start Last Admin Trade Name Freq PRN Reason Stop Dose Admin Acetaminophen 500 mg 07/31/23 19:35 07/31/23 20:18 Acetaminophen 500 Mg Tablet PO 500 mg Q4H PRN Administration Mild Pain (Level 1-3) Amoxicillin/Clavulanate Potassium 1 tab 08/01/23 09:00 08/01/23 09:27 Amox/Clav 875 Mg/125 Mg Tablet PO 1 tab BID DESTINEE Administration - Physical Exam General Appearance: positive: No acute distress, Alert Eyes Bilateral: positive: PERRL, EOMI ENT: positive: No signs of dehydration Neck: positive: Trachea midline Respiratory: positive: No respiratory distress Cardiovascular: positive: Regular rate & rhythm Abdomen: positive: Non-tender, No distention. negative: Guarding, Rebound Skin: positive: No rash Extremities: positive: Non-tender Neurologic/Psychiatric: positive: Oriented x3 Impression/Plan - Problem List Problem List: This is a 32-year-old male with: 1. Acute colitis with appendicitis The patient has pancolitis and mild appendicitis measuring 0.9 cm in greatest diameter. I believe his appendix is "an innocent bystander" to the overall inflammation and the patient would not benefit from appendectomy at this time. There is no significant fat stranding throughout the abdomen. - pain markedly improved with IV abx. With the patient's rapid improvement and without any clear sign of inflammatory bowel disease, I have elected not to start steroids at this time. - adat to regluar this AM and transition to PO abx - if he tolerates diet and PO meds, plan to discharge later today with abx for 5 days - patient will need colonoscopy in f/u to definitively rule out IBD. I will see him back in clinic in 2-4 weeks to schedule this study. 2. Asthma -I will continue the patient's home medications.
--- NOTE | 2023-08-01 10:27 | PHARMACY PROGRESS NOTE ---
- Best Possible Medication History Admit Date and Time: 07/31/231927 Processed by: Pharmacy Medications reviewed in ED?: Yes Medication History completed: Yes Patient Interview: Completed Secondary Source(s): Insurance records As the person ultimately responsible for medication therapy, providers are able to order a medication from an existing home medication list in [facility] via the "Reconcile Routine" prior to Confirmation of that medication by pharmacy retail support specialist. Such practice is discouraged except when the physician, in their clinical judgment, deems that a medical need exists for a medication without regard to previous use.
--- NOTE | 2023-08-01 14:13 | Discharge Plan ---
Discharge Plan Problem Reviewed?: Yes Disposition: Home, Self Care Condition: Good Prescriptions: Amox/Clav 500/125 [Augmentin 500/125] 1 tablet PO Q12H 5 Days #10 tablet Diet: Regular Activity Restrictions: No Restrictions Shower Restrictions: No Driving Restrictions: No Weight Bearing: Full Weight Instruction Topics: ED Gastroenteritis Non Infec, ED Gastroenteritis Bacterial Plan of Treatment: Improve pain, increase diet Care Goals: improve pain, increase diet Assessment: Pain essentially resolved today, tolerating diet and PO meds. Additional Instructions or Follow Up instructions: f/u with Dr Blanco in 2 weeks. 08/16 at 0830AM. You will need a colonoscopy in the coming weeks. No Smoking: If you smoke, Please STOP! Call for help. Follow-up with: Jaleesa Blanco MD [Provider Admit Priv/Credential] -
--- NOTE | 2023-08-01 14:16 | DISCHARGE SUMMARY ---
Discharge Summary Admit Date: 07/31/23 Discharge Date: 08/01/23 Discharging Provider: Dr. Taylor Blanco Code Status: Attempt Resuscitation Condition at Discharge: Good Discharge Disposition: 01 Home, Self Care Discharge Facility Name: [facility] - DIAGNOSES Admission Diagnoses: acute colitis with appendicitis asthma Discharge Diagnoses with Status of Each Condition: acute colitis with appendicitis, improving asthma, stable - HPI History of Present Illness: Patient reports chronic back pain which has been worse for the last couple of days and acute onset right lower quadrant pain since last night. His pain is sharp and constant in nature. It is made worse with activity and palpation. He denies f/c, c/d, blood in his stool, recent weight loss, and has had a normal appetite throughout his illness. He had a similar episode of pain about ten years ago and was diagnosed with "colitis" which improved with medication (though he's not sure what he was given) and he did not require any follow up. No family history of colon cancer. +FH of crohn's in his sister. - CONSULTS | PROCEDURES Consultations: none Procedures: none - HOSPITAL COURSE Hospital Course: This is a 32-year-old male with: 1. Acute colitis with appendicitis - CRP, WBC wnl today. The patient has pancolitis and mild appendicitis measuring 0.9 cm in greatest diameter. I believe his appendix is "an innocent bystander" to the overall inflammation and the patient would not benefit from appendectomy at this time. There is no significant fat stranding throughout the abdomen. - pain markedly improved with IV abx. With the patient's rapid improvement and without any clear sign of inflammatory bowel disease, I have elected not to start steroids at this time. - adat to regluar this AM and transition to PO abx. He has tolerated this well, appropriate for discharge - patient will need colonoscopy in f/u to definitively rule out IBD. I will see him back in clinic in 2-4 weeks to schedule this study. 2. Asthma -I will continue the patient's home medications. - ALLERGIES Allergies/Adverse Reactions: Allergies Allergy/AdvReac Type Severity Reaction Status Date / Time No Known Drug Allergies Allergy Verified 07/31/23 16:53 - MEDICATIONS Home Medications: Ambulatory Orders Medication Instructions Recorded Confirmed Gabapentin [Neurontin] 300 mg PO DAILY 07/31/23 08/01/23 Montelukast Sodium 10 mg PO DAILY 07/31/23 08/01/23 Albuterol Sulfate [Proventil Hfa] 2 puffs INH Q4H PRN 08/01/23 08/01/23 Amox/Clav 500/125 [Augmentin 1 tablet PO Q12H 5 Days #10 tablet 08/01/23 500/125] - PHYSICAL EXAM AT DISCHARGE General Appearance: positive: No acute distress, Alert Eyes Bilateral: positive: Normal inspection ENT: positive: No signs of dehydration Neck: positive: Trachea midline Respiratory: positive: No respiratory distress Cardiovascular: positive: Regular rate & rhythm Peripheral Pulses: positive: 2+ Abdomen: positive: No distention. negative: Tenderness, Guarding, Rebound Skin: positive: No rash - LABS Result Diagrams: 08/01/23 05:20 08/01/23 05:20
[2023-08-01 14:54] VITALS: BP 142/105
== END 2023-08-01 14:50 | disposition home or self-care (01) ==
LOC: ED 16:38 → MS2 19:28
PROVIDERS: ADMIT Surgery; ATTEND Surgery
DX: K52.9 Noninfective gastroenteritis and colitis, unspecified (principal); K37 Unspecified appendicitis; J45.909 Unspecified asthma, uncomplicated; G89.29 Other chronic pain; M54.9 Dorsalgia, unspecified; Z79.899 Other long term (current) drug therapy; Z82.3 Family history of stroke; Z82.49 Family history of ischemic heart disease and other diseases of the circulatory system; Z83.3 Family history of diabetes mellitus; Z83.79 Family history of other diseases of the digestive system; Z87.891 Personal history of nicotine dependence
CPT/HCPCS: 36415; 74177; 80048; 80053; 81003; 85025; 85027; 86140; 96365; 96366; 96375; 99284; 99285; A9270; G0378; Q9967; 81001; 87086